=== PATIENT | male | born 1945 | race Caucasian/White ===

== ENCOUNTER → 2018-08-26 08:56 | Outpatient (CLI) | payer MEDICARE, OTHER ==
[~2018-08-26 08:56] MED LIST: AMBIEN5 MG PO; BETAPACE 120 M120 MG PO; CALAN120 MG PO; DULERA 200 MCG8.8 GM INH; FLOMAX0.4 MG PO; FUROSEMIDE40 MG PO; HCTZ25 MG PO; K-TAB10 MEQ PO; LEVOTHYROXINE50 MCG PO; PRAVACHOL40 MG PO
[2018-09-12 06:52] VITALS: BMI 28.8
== END | disposition home or self-care (01) ==
LOC: D.HCCARDIO 08:56
DX: I20.9 Angina pectoris, unspecified (principal)

== ENCOUNTER 2018-09-12 06:07 | Outpatient (CLI) | payer MEDICARE, OTHER ==
[~2018-09-12] VITALS: Ht 190.5 cm; Wt 104.5 kg
--- NOTE | ~2018-09-12 | HEMODYNAMI ---
PATIENT:PAULA LR MEDICAL RECORD: [id number] : 45 LOCATION:[facility] ADMISSION DATE: 09/12/18 Generatedon:09/12/20188:11 Patient name: PAULA LR Patient #: [id number] SSN: B: 1945 Date of study: 09/12/2018 Page: Of Hemodynamic Procedure Report Patient Data Patient Demographics Procedure consent was obtained First Name: PAULA Gender: Male Last Name: ADELINE : 1945 Patient #: [id number] Age: 72 year(s) Race: Unknown Additional ID: [id number] Contact details [address]: [address] [place] [address] State: [place] City: [place] Zip code: [address] Past Medical History Allergies Allergen Reaction Date Comments Reported Tetracycline 09/12/2018 Admission Admission Data Admission Date: 09/12/2018 Admission Time: 6:07 Height (in.): 73 BSA: 2.32 (m2) Height (cm.): 185.42 BMI: 31.53 (kg/m2) Weight (lbs.): 239 Weight (kg.): 108.41 Lab Results Lab Result Date: 09/12/2018 Lab Result Time: 0:00 Biochemistry Name Units Result Min Max BUN mg/dl 13 --(--*-)-- 7 18 Creatinine mg/dl 0.8 --(-*--)-- 0.6 1.3 CBC Name Units Result Min Max Hemoglobin g/dl 13.8 --(*---)-- 13.5 17.5 Procedure Procedure Types Cath Procedure Diagnostic Procedure LHC LHC w/Coronaries Procedure Description Procedure Date Procedure Date: 09/12/2018 Procedure Start Time: 7:56 Procedure End Time: 8:10 Procedure Staff Name Function Valentin Lazcano MD Performing Physician Loretta Shafer RT Monitor Lexi Pappas RT Scrub Cheryl Aguilar RN Nurse Procedure Data Cath Procedure Fluoroscopy Diagnostic fluoroscopy Total fluoroscopy Time: 3.4 time: 3.4 min min Diagnostic fluoroscopy Total fluoroscopy dose: 556 dose: 556 mGy mGy Contrast Material Contrast Material Type Amount (ml) Isovue 300 37 Entry Location Entry Primary Successful Side Size Upsize Upsize Entry Closure [place] ccessful Closure Location (Fr) 1 (Fr) 2 (Fr) Remarks Device Remarks Radial Right 6 Fr Mechanical artery Short Compression Estimated blood loss: 5 ml Diagnostic catheters Device Type Used For End Catheter Placement DIAGNOSTIC Rom 110cm LV Angiography 5Fr catheter ([id number]) DIAGNOSTIC Rom 110cm Left Coronary 5Fr catheter ([id number]) Angiography DIAGNOSTIC [place] 110cm 5 Left Coronary Fr catheter ([id number]) Angiography DIAGNOSTIC [place] 110cm 5 Right Coronary Fr catheter ([id number]) Angiography Procedure Complications No complications Procedure Medications Medication Administration Route Dosage 0.9% NaCl I.V. 100 ml/hr Oxygen etCO2 Nasal cannula 2 l/min Lidocaine 2% added to field 20 Heparin Flush Bag added to field 2 bags (1000units/500ml NS) Radial Cocktail added to field 1 syringe (Verapomil 2mg/Nitro 400mcg/Heparin 1500units) Versed I.V. 2 mg Fentanyl I.V. 50 mcg Versed I.V. 2 mg Fentanyl I.V. 50 mcg Versed I.V. 1 mg Hemodynamics Rest BSA: 2.32 (m2) HGB: 13.8 (g/dl) O2 Consumption: Estimated: 253.22 (ml/min) O2 Co nsumption indexed: Estimated:109.15 (ml/min/m) Heart Rate: 53 (bpm) Pressure Samples Time Site Value (mmHg) Purpose Heart Use Rate(bpm) 7:59 LV 50/1,11 EDP 66 7:59 LV 101/-4,7 Snapshot 60 Gradients Valve Time Site Site Mean SEP/DFP Peak To Heart Use 1 2 (mmHg) (sec/min) Peak Rate (mmHg) (bpm) Aortic 8:00 LV AO 91 Snapshots Pre Cath Intra NCS Post Cath Vital Signs Time Heart Resp SPO2 etCO2 NIBP (mmHg) Rhythm Pain Sedation Rate (ipm) (%) (mmHg) Status Level (bpm) 7:43:53 65 14 99 20.8 131/75(102) Paced 0 (11) 10(A) , No pain 7:48:11 60 13 99 45.5 119/72(89) Paced 0 (11) 10(A) , No pain 7:52:25 60 10 97 27.6 116/70(82) Paced 0 (11) 10(A) , No pain 7:56:39 60 15 97 19.3 110/64(85) Paced 0 (11) 10(A) , No pain 8:00:51 59 12 98 20.8 101/54(81) Paced 0 (11) 10(A) , No pain 8:05:05 59 14 96 38 104/62(77) Paced 0 (11) 10(A) , No pain 8:09:21 60 9 96 46.9 107/59(79) Paced 0 (11) 10(A) , No pain Medications Time Medication Route Dose Verified Delivered Reason Notes Ef fectiveness by by 7:42:51 0.9% NaCl I.V. 100 Cheryl Cheryl used for ml/hr Jeff Aguilar forest technician RN 7:42:59 Oxygen etCO2 2 l/min Cheryl Cheryl used for Nasal Jeff Aguilar procedure cannula RN RN 7:43:04 Lidocaine 2% added 20ml Cheryl Valentin for local to vial Jeff Lazcano MD anesthetic field RN 7:43:10 Heparin Flush added 2 bags Cheryl Valentin used for Bag to Jeff Lazcano MD procedure (1000units/500ml field RN NS) 7:50:11 Radial Cocktail added 1 Cheryl Valentin used for (Verapomil to syringe Jeff Lazcano MD procedure 2mg/Nitro field RN 400mcg/Heparin 1500units) 7:53:29 Versed I.V. 2 mg Cheryl Valentin for Jeff Lazcano MD sedation RN 7:53:41 Fentanyl I.V. 50 mcg Cheryl Cheryl for Jeff Aguilar sedation RN RN 7:58:03 Versed I.V. 2 mg Cheryl Cheryl for Jeff Aguilar sedation RN RN 7:58:10 Fentanyl I.V. 50 mcg Cheryl Cheryl for Jeff Aguilar sedation RN RN 8:04:30 Versed I.V. 1 mg Cheryl Cheryl for Jeff Aguilar sedation RN managed services consultant Log Time Note 7:25:15 Signed procedure consent form obtained from patient. 7:25:16 Time tracking: Regular hours (M-F 7:00 - 5:00) 7:25:19 Plan of Care:Hemodynamics will remain stable., Cardiac rhythm will remain stable., Comfort level will be maintained., Respiratory function will remain adequate., Patient/ family verbilizes understanding of procedure., Procedure tolerated without complication., Recovers from procedure without complications.. 7:25:20 Diagnostic Cath status Elective 7:25:27 H&P Date Dictated: 09/03/2018 Within 30 days and on chart., H&P Addendum completed by physician on day of procedure. (MUST COMPLETE FOR ALL OUTPATIENTS). 7:25:34 Patient allergic to Tetracycline 7:26:08 Patient Height : 73 inches 7:26:13 Patient Weight : 239 lbs 7:27:30 Cheryl Aguilar RN sent for patient. Start room use. 7:30:52 Lab Result : BUN 13 mg/dl 7:30:52 Lab Result : Hemoglobin 13.8 g/dl 7:30:52 Lab Result : Creatinine 0.8 mg/dl 7:33:53 Patient received from Pre/Post Procedure Room to [facility] 1 Alert and oriented. Tansferred to table in Supine position. 7:33:56 Warm blankets applied, and cierra hugger turned on for patient comfort. 7:33:56 Correct patient and procedure confirmed by team. 7:33:57 ECG and BP/O2 sat monitors applied to patient. 7:41:51 Full Disclosure recording started 7:41:55 Previous problem with sedation/anesthesia? No ? 7:41:56 Snore? Yes 7:41:57 Sleep apnea? Yes 7:41:58 Deviated septum? No 7:41:59 Opens mouth fully? Yes 7:42:00 Sticks out tongue? Yes 7:42:04 Airway obstruction? Yes Asthma 7:42:06 Dentures? No ? 7:42:10 Baseline sample Acquired. 7:42:18 Pre-procedure instructions explained to patient. 7:42:18 Pre-op teaching completed and patient verbalized understanding. 7:42:20 Family in patients room. 7:42:21 Patient NPO since Midnight. 7:42:23 Is the patient allergic to Iodine/contrast media? No. 7:42:43 Vital chart was started 7:42:51 0.9% NaCl 100 ml/hr I.V. was administered by Cheryl Aguilar RN; used for procedure; 7:42:59 Oxygen 2 l/min etCO2 Nasal cannula was administered by Cheryl Aguilar RN; used for procedure; 7:43:04 Lidocaine 2% 20ml vial added to field was administered by Valentin Lazcano MD; for local anesthetic; 7:43:10 Heparin Flush Bag (1000units/500ml NS) 2 bags added to field was administered by Valentin Lazcano MD; used for procedure; 7:43:30 Baseline sample Acquired. 7:43:37 Is patient on blood thinner?No 7:43:38 Patient diabetic? No. 7:43:42 Pre procedure: right dorsailis pedis pulse 2+ Normal; easily identifiable; not easily obliterated 7:43:45 Modified Gigi's test Radial < 7 seconds 7:43:47 Patient pain scale 0/10 ?. 7:43:52 IV patent on arrival in left forearm with 0.9% NaCl at [facility]. 7:43:55 Lab results completed and on chart. 7:43:59 Right Radial & Right Groin area was prepped with chlora-prep and draped in sterile fashion 7:44:00 Alarms reviewed by R. N. 7:44:00 Sharps counted by scrub and verified by R.N. 7:44:02 Use device set Radial Dx or PCI 7:44:03 ACIST Syringe (08616) opened to sterile field. 7:44:04 Medline Cath Pack ([id number]) opened to sterile field. 7:44:04 Bag Decanter (2002S) opened to sterile field. 7:44:05 DIAGNOSTIC WIRE .035 260cm J wire (746294) opened to sterile field. 7:44:05 ACIST Hand Control (57008) opened to sterile field. 7:44:06 ACIST Manifold (30017) opened to sterile field. 7:44:07 MBrace Wrist Support ([id number]) opened to sterile field. 7:44:08 SHEATH 6FR Slender (82-9360) opened to sterile field. 7:44:14 NEEDLE Cook 21G 4cm Radial (L68630) opened to sterile field. 7:48:41 Rhythm: paced 7:50:11 Radial Cocktail (Verapomil 2mg/Nitro 400mcg/Heparin 1500units) 1 syringe added to field was administered by Valentin Lazcano MD; used for procedure; 7:53:02 Final Timeout: patient, procedure, and site verified with staff and physician. All members of the team are in agreement. 7:53:03 Right Radial site verified by team. 7:53:05 Physical assessment completed. ASA score P 2 - A patient with mild systemic disease as per Valentin Lazcano MD. 7:53:09 Sedation plan: IV Moderate Sedation Medication:Versed, Fentanyl 7:53:29 Versed 2 mg I.V. was administered by Valentin Lazcano MD; for sedation; 7:53:41 Fentanyl 50 mcg I.V. was administered by Cheryl Aguilar RN; for sedation; 7:53:51 Zero performed for pressure channel P1 7:56:51 Procedure started. 7:56:56 Local anesthetic to right radial artery with Lidocaine 2% by Valentin Lazcano MD.INITIAL ACCESS ONLY 7:57:49 A 6 Fr Short sheath was inserted into the Right Radial artery 7:58:03 Versed 2 mg I.V. was administered by Cheryl Aguilar RN; for sedation; 7:58:10 Fentanyl 50 mcg I.V. was administered by Cehryl Aguilar RN; for sedation; 7:58:34 A DIAGNOSTIC Rom 110cm 5Fr catheter (369685) was advanced over the wire and used for LV Angiography. 7:59:51 LV gram done using GRIFFIN 8:00:06 EF : 50 % 8:00:13 Injector settings: Ml/sec: 5, Volume: 15, 8:00:16 LV hemodynamics recorded. 8:02:13 A DIAGNOSTIC Rom 110cm 5Fr catheter (776002) was advanced over the wire and used for Left Coronary Angiography. removed unable to cannulate 8:03:20 A DIAGNOSTIC [place] 110cm 5 Fr catheter (385485) was advanced over the wire and used for Left Coronary Angiography. 8:04:30 Versed 1 mg I.V. was administered by Cheryl Aguilar RN; for sedation; 8:04:41 A DIAGNOSTIC [place] 110cm 5 Fr catheter (293433) was advanced over the wire and used for Right Coronary Angiography. 8:04:52 Catheter removed. 8:04:54 TR BAND Standard ([id number]) opened to sterile field. 8:05:40 Sheath removed intact; hemostasis achieved with Mechanical Compression to the Right Radial artery. 8:05:47 Procedure ended.(Physican Out) 8:06:00 Fluoroscopy time 03.40 minutes. 8:06:04 Fluoroscopy dose: 556 mGy 8:06:04 Flurop Dose total: 556 8:06:09 Contrast amount:Isovue 300 37ml. 8:06:36 Sharps counted by scrub and verified by R.N. 8:06:38 Insertion/operative site no bleeding no hematoma. 8:06:46 Post right radial artery:stable, clean and dry 8:06:48 Post Procedure Pulses reassessed and unchanged 8:06:52 Post-procedure physical assessment completed. ASA score P 2 - A patient with mild systemic disease as per Valentin Lazcano MD. 8:06:56 Post procedure rhythm: unchanged. 8:06:58 Estimated blood loss: 5 ml 8:06:59 Post procedure instruction explained to patient.Patient verbalizes understanding. 8:07:00 Patient needs reinforcement of post procedure teaching. 8:07:26 Procedure Complication : No complications 8:07:37 See physician's report for complete and final results. 8:08:16 TR band inflated with 9cc of air. 8:08:20 Procedure and supply charges have been captured, reviewed, submitted and are correct. 8:10:19 Vital chart was stopped 8:10:26 Report given to Pre/Post Procedure Room. 8:10:29 Patient transfered to Pre/Post Procedure Room with Stretcher. 8:10:37 Procedure ended. 8:10:37 Full Disclosure recording stopped 8:10:41 End room use (Document Last) Device Usage Item Name Manufacture Quantity Catalog Hospital Part Current Minimal Lot# / Number Charge Number Stock Stock Serial# Code ACIST Acist 1 94520 332441 337809 700661 20 Syringe Medical (46359) Systems Inc Medline Medline 1 [id number] 299882 83321 297653 5 Cath Pack ([id number]) Bag Microtek 1 2001S 194781 86283 287706 5 Decanter Medical Inc. () DIAGNOSTIC [facility] [place] 1 513587 381593 998512 825591 30 WIRE .035 260cm J wire (754783) ACIST Hand Acist 1 73123 777727 668622 193415 5 Control Medical (57291) Systems Inc ACIST Acist 1 94522 812148 386781 330947 5 Manifold Medical (35229) Systems Inc MBrace Advanced 1 140-0250-00 870614 81672 217035 5 Wrist Vascular Support Dynamics ([id number]) SHEATH 6FR Terumo 1 [id number] 638451 632147 151959 40 Slender (801060) NEEDLE [facility] 1 [id number] 579025 391677 518876 5 21G 4cm Radial (Q02914) DIAGNOSTIC Terumo 1 40-3313 096244 887067 632753 5 Rom 110cm 5Fr catheter (412150) DIAGNOSTIC Terumo 1 40-5013 514996 381434 014608 5 [place] 110cm 5 Fr catheter (996255) TR BAND Terumo 1 [id number] 397230 805193 237598 40 Standard ([id number]) Signature Audit [place] Stage Time Signature Unsigned Intra-Procedure 09/12/2018 Loretta 8:10:56 AM Counts RT(R) Signatures Monitor : Loretta Signature : Counts RT Date : Time : [place] [id number] [place] [address]
[2018-09-12] MEDS ORDERED: AMBIEN5 MG PO (06:24)
[2018-09-12] MEDS ORDERED: BETAPACE 120 M120 MG PO (06:24)
[2018-09-12] MEDS ORDERED: FLOMAX0.4 MG PO (06:24)
[2018-09-12] MEDS ORDERED: LEVOTHYROXINE50 MCG PO (06:25)
[2018-09-12] MEDS ORDERED: DULERA 200 MCG8.8 GM INH (06:25)
[2018-09-12] MEDS ORDERED: HCTZ25 MG PO (06:25)
[2018-09-12] MEDS ORDERED: CALAN120 MG PO (06:26)
[2018-09-12] MEDS ORDERED: K-TAB10 MEQ PO (06:26)
[2018-09-12] MEDS ORDERED: FUROSEMIDE40 MG PO (06:26)
[2018-09-12] MEDS ORDERED: PRAVACHOL40 MG PO (06:27)
[2018-09-12 06:48] LABS: BASOPHILS 0.8 % (0-2); EOSINOPHILS 6.2 % (0-7); HEMATOCRIT 41.5 % (42.0-54.0); HEMOGLOBIN 13.8 g/dL (13.5-17.5); IMMATURE GRANULOCYTES 0.2 % (0-5); LYMPHOCYTES 22.9 % (15-50); MCH 26.8 pg (26.0-34.0); MCHC 33.3 g/dL (31.0-37.0); MCV 80.7 fL (80.0-100.0); MEAN PLATELET VOLUME 9.5 fL (7.4-10.4); MONOCYTES 14.7 % (2-11); NEUTROPHILS 55.2 % (40-80); PLATELET COUNT 218 10x3/uL (130-400); RBC 5.14 10x6/uL (4.20-6.10); RDW 17.5 % (11.5-14.5)
[2018-09-12 06:52] VITALS: BP 122/88; Ht 190.5 cm; Wt 104.5 kg
[2018-09-12 07:01] LABS: CALC OSMOLALITY 275 mosm/kg (275-300); CALCIUM 8.6 mg/dL (8.5-10.1); CARBON DIOXIDE 29.9 mmol/L (21.0-32.0); CHLORIDE - SERUM 100 mmol/L (98-107); CREATININE - SERUM 0.8 mg/dL (0.6-1.3); GLUCOSE 105 mg/dL (74-106); POTASSIUM - SERUM 3.4 mmol/L (3.5-5.1); SODIUM 138 mmol/L (136-145); UREA NITROGEN 13 mg/dL (7-18); eGFR NON AFRICAN AMERICAN > 90 mL/min (90-120)
== END 2018-09-12 11:12 ==
LOC: D.CATH 06:07
PROVIDERS: Internal Medicine Cardiovascular Disease
DX: I20.9 Angina pectoris, unspecified (principal); Z01.812 Encounter for preprocedural laboratory examination

== ENCOUNTER → 2019-09-26 13:10 | Outpatient (CLI) | payer MEDICARE, BC ==
[2018-09-12 06:52] VITALS: BMI 28.8
== END | disposition home or self-care (01) ==
LOC: D.HCCECHO 13:10
PROVIDERS: ATTEND Internal Medicine Cardiovascular Disease
DX: I34.0 Nonrheumatic mitral (valve) insufficiency (principal)